=== PATIENT | female | born 1970 | race Asian ===

== ENCOUNTER 2016-11-25 13:46 | Outpatient (CLI) | payer OTHER | END 2016-11-25 18:34 | disposition home or self-care (01) | LOC: SMA 13:46 | PROVIDERS: ATTEND General Practice | DX: N60.12 Diffuse cystic mastopathy of left breast (principal); N60.11 Diffuse cystic mastopathy of right breast; N64.59 Other signs and symptoms in breast; R92.2 Inconclusive mammogram | CPT/HCPCS: G0204; G0206 ==

== ENCOUNTER 2018-12-14 08:45 | Outpatient (CLI) | payer OTHER | END 2018-12-14 21:08 | disposition home or self-care (01) | LOC: SMA 08:45 | PROVIDERS: ATTEND General Practice | DX: N64.4 Mastodynia (principal) | CPT/HCPCS: 76642; 77066 ==

== ENCOUNTER 2020-11-05 10:39 | Outpatient (CLI) | payer OTHER | END 2020-11-05 20:23 | disposition home or self-care (01) | LOC: SUS 10:39 | PROVIDERS: ATTEND General Practice | DX: R92.2 Inconclusive mammogram (principal) | CPT/HCPCS: 76642; 77066 ==

== ENCOUNTER → 2022-04-20 | Outpatient (CLI) | payer OTHER | END | disposition home or self-care (01) | LOC: SMA 10:11 | PROVIDERS: ATTEND Family Medicine | DX: Z12.31 Encounter for screening mammogram for malignant neoplasm of breast (principal) | CPT/HCPCS: 77067 ==